=== PATIENT | male | born 1970 | race African-American/Black ===

== ENCOUNTER 2019-12-10 01:52 | Inpatient (IN) ==
[2019-12-10] MEDS ORDERED: ACETAMINOPHEN 500 MG TABLET ONE (02:20)
[2019-12-10] MEDS ORDERED: ACETAMINOPHEN 500 MG TABLET PO STA (02:28)
[2019-12-10] MEDS ORDERED: PIPERACILLIN/TAZOBACTAM 3,375 MG in SODIUM CHLORIDE 0.9% 100 ML IV STA (03:34)
[2019-12-10] MEDS ORDERED: DEXAMETHASONE 4 MG/1 ML VIAL IV STA (03:34)
[2019-12-10] MEDS ORDERED: ONDANSETRON 4 MG/2 ML VIAL IV STA (03:34)
[2019-12-10 04:32] LABS: Basophils % 0.5 % (0.0-0.8); Hematocrit 46.5 VOL% (42.0-52.0); Hemoglobin 15.6 GM/DL (14.0-18.0); Immature Granulocytes % 0.3 %; Immature Granulocytes Absolute 0.02 #; Lymphocytes # 1.7 10*3/uL (1.4-4.0); Lymphocytes % 21.9 % (21.2-54.2); Mean Corpuscular HGB Conc 33.5 GM/DL (32-36); Mean Corpuscular Volume 83.8 FL (87-102); Mean Platelet Volume 9.7 FL (9.6-12.0); Monocytes % 4.3 % (1.7-12.7); Platelet Count 289 T/CUMM (130-400); Red Blood Count 5.55 MC/CUMM (3.8-5.5); Red Cell Distribution Width 13.7 % (9.3-17.3); White Blood Count 7.7 T/CUMM (4-12)
[2019-12-10 04:52] LABS: PT Patient Result 11.1 SECS (9.8-11.9)
[2019-12-10 04:57] LABS: Albumin 4.1 G/DL (3.4-5.0); Bilirubin,Total 0.7 MG/DL (0.2-1.0); Calcium 9.4 MG/DL (8.5-10.1); Ferritin 554.1 ng/ml (26-388); Osmolality,Calculated 266.4 MOS/KG (273-304); Total Protein 8.5 G/DL (6.4-8.3)
[2019-12-10 05:30] LABS: Bilirubin,Urine Negative (Negative); Blood, Urine Small mg/dL (Negative); Glucose,Urine (UA) Negative (Negative); Ketones,Urine Negative (Negative); Mucus,Urine Occasional /LPF (Occasional); Nitrite,Urine Negative (Negative); Protein,Urine 100 MG/DL; RBC,Urine 2 /HPF (0-4); Squamous Epithelial Cell,Urine Occasional /HPF (0-10); Urine Appearance Slightly Hazy (Clear); Urine Color Yellow (Yellow); Urine Specific Gravity 1.034 (1.001-1.035); Urine Urobilinogen < 2.0 EU/DL (0.2-1.0); WBC,Urine 1 /HPF (0-6)
[2019-12-10] MEDS ORDERED: hydrALAZINE 20 MG/1 ML VIAL IV PRN (06:08)
[2019-12-10] MEDS ORDERED: GLUCAGON 1 MG VIAL IM PRN (06:08)
[2019-12-10] MEDS ORDERED: DEXTROSE 50% 25 GM/50 ML VIAL IV PRN (06:08)
[2019-12-10] MEDS ORDERED: ONDANSETRON 4 MG/2 ML VIAL IV PRN (06:08)
[2019-12-10] MEDS ORDERED: ALUMINUM/MAGNES/SIMETH MAX STR 30 ML UDCUP PO PRN (06:08)
[2019-12-10] MEDS ORDERED: NICOTINE 21 MG/24 HR PATCH TRANSDERM PRN (06:08)
[2019-12-10] MEDS ORDERED: diphenhydrAMINE CAP 25 MG CAPSULE PO PRN (06:08)
[2019-12-10] MEDS ORDERED: SODIUM CHLORIDE 0.9% 100 ML IV ONE (06:52)
[2019-12-10] MEDS: cefTRIAXone 1,000 MG in SYRINGE 1 EACH IV SCH (06:54)
[2019-12-10] MEDS: DEXTROSE 5% NACL 0.45% 1,000 ML IV SCH ×2 (08:15→17:57)
[2019-12-10] MEDS: AZITHROMYCIN 250 MG TABLET PO SCH (10:11)
[2019-12-10] MEDS: ASCORBIC ACID 500 MG TABLET PO SCH ×2 (10:12→20:35)
[2019-12-10] MEDS ORDERED: DEXAMETHASONE 4 MG/1 ML VIAL IM SCH (15:30)
[2019-12-10] MEDS: guaiFENesin/DM ER 600-30 MG TABLET PO PRN (16:13)
[2019-12-10] MEDS ORDERED: AZITHROMYCIN INJ 500 MG in SODIUM CHLORIDE 0.9% 250 ML IV SCH (18:30)
[2019-12-10] MEDS: ACETAMINOPHEN 325 MG TABLET PO PRN (22:19)
[2019-12-11] MEDS: DEXTROSE 5% NACL 0.45% 1,000 ML IV SCH ×2 (05:25→16:40)
[2019-12-11] MEDS: ACETAMINOPHEN 325 MG TABLET PO PRN ×3 (05:39→20:34)
[2019-12-11] MEDS: guaiFENesin/DM ER 600-30 MG TABLET PO PRN (05:39)
[2019-12-11 05:47] LABS: Basophils % 0.1 % (0.0-0.8); Hematocrit 43.1 VOL% (42.0-52.0); Hemoglobin 14.3 GM/DL (14.0-18.0); Immature Granulocytes % 0.1 %; Immature Granulocytes Absolute 0.01 #; Lymphocytes # 1.2 10*3/uL (1.4-4.0); Lymphocytes % 17.5 % (21.2-54.2); Mean Corpuscular HGB Conc 33.2 GM/DL (32-36); Mean Corpuscular Volume 85.3 FL (87-102); Mean Platelet Volume 9.7 FL (9.6-12.0); Monocytes % 4.6 % (1.7-12.7); Neutrophils % 77.7 % (38.7-73.9); Platelet Count 288 T/CUMM (130-400); Red Blood Count 5.05 MC/CUMM (3.8-5.5); Red Cell Distribution Width 13.8 % (9.3-17.3)
[2019-12-11] MEDS: cefTRIAXone 1,000 MG in SYRINGE 1 EACH IV SCH (05:47)
[2019-12-11 06:12] LABS: Calcium 8.6 MG/DL (8.5-10.1); Ferritin 438.2 ng/ml (26-388); Osmolality,Calculated 267.4 MOS/KG (273-304)
[2019-12-11] MEDS: ASCORBIC ACID 500 MG TABLET PO SCH ×2 (09:12→20:34)
[2019-12-11] MEDS: AZITHROMYCIN 250 MG TABLET PO SCH (09:12)
[2019-12-11] MEDS: DEXAMETHASONE 4 MG/1 ML VIAL IV SCH (09:12)
[2019-12-11] MEDS ORDERED: DOCUSATE SODIUM 100 MG CAPSULE PO PRN (09:30)
[2019-12-11] MEDS ORDERED: MAGNESIUM HYDROXIDE SUSP 30 ML UDCUP PO ONE (10:24)
[2019-12-11] MEDS: PHENOL 1.4% THROAT SPRAY 177 ML BOTTLE PO PRN (11:08)
[2019-12-11] MEDS: POLYETHYLENE GLYCOL POWDER 17 GM PACK PO SCH (11:09)
[2019-12-11] MEDS: DOCUSATE SODIUM 100 MG CAPSULE PO SCH (11:09)
[2019-12-11] MEDS ORDERED: BISACODYL 10 MG SUPP RECTAL ONE (14:35)
[2019-12-12] MEDS: DEXTROSE 5% NACL 0.45% 1,000 ML IV SCH ×3 (04:14→17:32)
[2019-12-12 04:56] LABS: Basophils % 0.2 % (0.0-0.8); Hematocrit 44.6 VOL% (42.0-52.0); Hemoglobin 14.6 GM/DL (14.0-18.0); Immature Granulocytes % 0.2 %; Immature Granulocytes Absolute 0.01 #; Lymphocytes # 1.2 10*3/uL (1.4-4.0); Lymphocytes % 19.9 % (21.2-54.2); Mean Corpuscular HGB Conc 32.7 GM/DL (32-36); Neutrophils % 75.7 % (38.7-73.9); Platelet Count 262 T/CUMM (130-400); Red Blood Count 5.25 MC/CUMM (3.8-5.5); Red Cell Distribution Width 13.8 % (9.3-17.3); White Blood Count 5.8 T/CUMM (4-12)
[2019-12-12 05:29] LABS: Calcium 8.6 MG/DL (8.5-10.1); Ferritin 509.9 ng/ml (26-388); Osmolality,Calculated 268.2 MOS/KG (273-304)
[2019-12-12] MEDS: cefTRIAXone 1,000 MG in SYRINGE 1 EACH IV SCH (05:52)
[2019-12-12] MEDS: PHENOL 1.4% THROAT SPRAY 177 ML BOTTLE PO PRN (06:02)
[2019-12-12] MEDS: guaiFENesin 200 MG/10 ML UDCUP PO PRN (06:28)
[2019-12-12] MEDS: DOCUSATE SODIUM 100 MG CAPSULE PO SCH (08:41)
[2019-12-12] MEDS: POLYETHYLENE GLYCOL POWDER 17 GM PACK PO SCH (08:41)
[2019-12-12] MEDS: ENOXAPARIN 40 MG/0.4 ML SYRINGE SUBCUT SCH (08:41)
[2019-12-12] MEDS: ACETAMINOPHEN 325 MG TABLET PO PRN (08:41)
[2019-12-12] MEDS: AZITHROMYCIN 250 MG TABLET PO SCH (08:42)
[2019-12-12] MEDS: ASCORBIC ACID 500 MG TABLET PO SCH ×2 (08:42→21:10)
[2019-12-12] MEDS: DEXAMETHASONE 4 MG/1 ML VIAL IV SCH (08:42)
[2019-12-12] MEDS ORDERED: SODIUM CHLORIDE 0.9% 1,000 ML IV PRN (14:18)
[2019-12-13] MEDS: DEXTROSE 5% NACL 0.45% 1,000 ML IV SCH ×3 (01:25→09:38)
[2019-12-13] MEDS: cefTRIAXone 1,000 MG in SYRINGE 1 EACH IV SCH (05:40)
[2019-12-13 06:04] LABS: Basophils % 0.2 % (0.0-0.8); Hematocrit 44.9 VOL% (42.0-52.0); Immature Granulocytes % 0.4 %; Immature Granulocytes Absolute 0.04 #; Lymphocytes # 1.5 10*3/uL (1.4-4.0); Lymphocytes % 14.6 % (21.2-54.2); Mean Corpuscular HGB Conc 33.4 GM/DL (32-36); Mean Corpuscular Volume 84.6 FL (87-102); Mean Platelet Volume 9.7 FL (9.6-12.0); Monocytes % 2.2 % (1.7-12.7); Neutrophils % 82.6 % (38.7-73.9); Platelet Count 310 T/CUMM (130-400); Red Blood Count 5.31 MC/CUMM (3.8-5.5); Red Cell Distribution Width 13.6 % (9.3-17.3)
[2019-12-13 07:05] LABS: Calcium 9.5 MG/DL (8.5-10.1); Osmolality,Calculated 260.8 MOS/KG (273-304)
[2019-12-13] MEDS: ENOXAPARIN 40 MG/0.4 ML SYRINGE SUBCUT SCH (08:06)
[2019-12-13] MEDS: POLYETHYLENE GLYCOL POWDER 17 GM PACK PO SCH (08:06)
[2019-12-13] MEDS: DOCUSATE SODIUM 100 MG CAPSULE PO SCH (08:06)
[2019-12-13] MEDS: DEXAMETHASONE 4 MG/1 ML VIAL IV SCH (08:06)
[2019-12-13] MEDS: AZITHROMYCIN 250 MG TABLET PO SCH (08:07)
[2019-12-13] MEDS: ASCORBIC ACID 500 MG TABLET PO SCH ×2 (08:07→21:00)
[2019-12-13] MEDS: guaiFENesin/DM ER 600-30 MG TABLET PO PRN (21:00)
[2019-12-14 05:31] LABS: Ferritin 857.3 ng/ml (26-388)
[2019-12-14] MEDS: cefTRIAXone 1,000 MG in SYRINGE 1 EACH IV SCH (06:00)
[2019-12-14] MEDS: ENOXAPARIN 40 MG/0.4 ML SYRINGE SUBCUT SCH (07:58)
[2019-12-14] MEDS: DEXAMETHASONE 4 MG/1 ML VIAL IV SCH (07:59)
[2019-12-14] MEDS: DOCUSATE SODIUM 100 MG CAPSULE PO SCH (07:59)
[2019-12-14] MEDS: POLYETHYLENE GLYCOL POWDER 17 GM PACK PO SCH (08:00)
[2019-12-14] MEDS: AZITHROMYCIN 250 MG TABLET PO SCH (08:00)
[2019-12-14] MEDS: ASCORBIC ACID 500 MG TABLET PO SCH ×2 (08:05→21:05)
[2019-12-14] MEDS: guaiFENesin/DM ER 600-30 MG TABLET PO PRN (21:05)
[2019-12-14] MEDS: traZODone 50 MG TABLET PO PRN (21:05)
[2019-12-15] MEDS: cefTRIAXone 1,000 MG in SYRINGE 1 EACH IV SCH (05:30)
[2019-12-15 05:42] LABS: Basophils % 0.3 % (0.0-0.8); Hematocrit 42.8 VOL% (42.0-52.0); Hemoglobin 14.1 GM/DL (14.0-18.0); Immature Granulocytes % 1.7 %; Immature Granulocytes Absolute 0.11 #; Lymphocytes % 29.4 % (21.2-54.2); Mean Corpuscular HGB Conc 32.9 GM/DL (32-36); Mean Corpuscular Volume 83.1 FL (87-102); Mean Platelet Volume 9.1 FL (9.6-12.0); Monocytes % 6.2 % (1.7-12.7); Neutrophils % 62.4 % (38.7-73.9); Platelet Count 408 T/CUMM (130-400); Red Blood Count 5.15 MC/CUMM (3.8-5.5); Red Cell Distribution Width 13.3 % (9.3-17.3); White Blood Count 6.6 T/CUMM (4-12)
[2019-12-15 06:07] LABS: Atypical Lymphocytes Few; Lymphocytes 35 % (20-55); Metamyelocytes 1 %; Platelet Estimate Normal; Segmented Neutrophils 57 % (50-85); Total Cells Counted 100
[2019-12-15 06:08] LABS: Anisocytosis Slight
[2019-12-15 06:10] LABS: Calcium 9.7 MG/DL (8.5-10.1); Osmolality,Calculated 266.4 MOS/KG (273-304)
[2019-12-15] MEDS: ENOXAPARIN 40 MG/0.4 ML SYRINGE SUBCUT SCH (07:59)
[2019-12-15] MEDS: DOCUSATE SODIUM 100 MG CAPSULE PO SCH (08:00)
[2019-12-15] MEDS: POLYETHYLENE GLYCOL POWDER 17 GM PACK PO SCH (08:00)
[2019-12-15] MEDS: ASCORBIC ACID 500 MG TABLET PO SCH ×2 (08:00→20:28)
[2019-12-15] MEDS: DEXAMETHASONE 4 MG/1 ML VIAL IV SCH (08:01)
[2019-12-15 12:43] LABS: ABG Base Excess 4.3 MMOL/L (-2.5-2.5); ABG HCO3 28.2 MMOL/L (20-26); ABG Oxygen Saturation 94.4 % (95-100); ABG PH 7.418 (7.35-7.45); ABG PO2 77.3 MM HG (80-95); ABG TCO2 25.5 MMOL/L (23-27); Allen Test Positive; Pt O2 Delivery Device BIPAP
[2019-12-15] MEDS: guaiFENesin 200 MG/10 ML UDCUP PO PRN (20:28)
[2019-12-15] MEDS: ACETAMINOPHEN 325 MG TABLET PO PRN (20:29)
[2019-12-15] MEDS: guaiFENesin/DM ER 600-30 MG TABLET PO PRN (20:29)
[2019-12-15] MEDS: traZODone 50 MG TABLET PO PRN (20:29)
[2019-12-16] MEDS: cefTRIAXone 1,000 MG in SYRINGE 1 EACH IV SCH (05:45)
[2019-12-16] MEDS: ENOXAPARIN 40 MG/0.4 ML SYRINGE SUBCUT SCH (08:31)
[2019-12-16] MEDS: DOCUSATE SODIUM 100 MG CAPSULE PO SCH (08:32)
[2019-12-16] MEDS: guaiFENesin/DM ER 600-30 MG TABLET PO PRN (08:32)
[2019-12-16] MEDS: ASCORBIC ACID 500 MG TABLET PO SCH ×2 (08:33→20:10)
[2019-12-16] MEDS: DEXAMETHASONE 4 MG/1 ML VIAL IV SCH (08:35)
[2019-12-16] MEDS: POLYETHYLENE GLYCOL POWDER 17 GM PACK PO SCH (08:36)
[2019-12-16] MEDS ORDERED: REMDESIVIR 200 MG in SODIUM CHLORIDE 0.9% 210 ML IV ONE (09:00)
[2019-12-16] MEDS: ALBUTEROL INHALER 18 GM INH SCH ×2 (20:10→20:20)
[2019-12-17] MEDS: ALBUTEROL INHALER 18 GM INH SCH ×4 (01:40→19:50)
[2019-12-17 06:21] LABS: Basophils # 0.1 10*3/uL (0.0-0.2); Basophils % 0.7 % (0.0-0.8); Eosinophils % 0.2 % (0.00-10.9); Hematocrit 42.1 VOL% (42.0-52.0); Hemoglobin 13.9 GM/DL (14.0-18.0); Immature Granulocytes % 4.8 %; Immature Granulocytes Absolute 0.44 #; Lymphocytes # 2.4 10*3/uL (1.4-4.0); Lymphocytes % 26.1 % (21.2-54.2); Mean Corpuscular Volume 84.5 FL (87-102); Neutrophils % 62.2 % (38.7-73.9); Platelet Count 453 T/CUMM (130-400); Red Blood Count 4.98 MC/CUMM (3.8-5.5); Red Cell Distribution Width 13.3 % (9.3-17.3); White Blood Count 9.2 T/CUMM (4-12)
[2019-12-17] MEDS: cefTRIAXone 1,000 MG in SYRINGE 1 EACH IV SCH (06:35)
[2019-12-17 06:42] LABS: Calcium 9.2 MG/DL (8.5-10.1); Osmolality,Calculated 272.8 MOS/KG (273-304)
[2019-12-17] MEDS: DOCUSATE SODIUM 100 MG CAPSULE PO SCH (08:54)
[2019-12-17] MEDS: ASCORBIC ACID 500 MG TABLET PO SCH ×2 (08:54→21:11)
[2019-12-17] MEDS: DEXAMETHASONE 4 MG/1 ML VIAL IV SCH (08:55)
[2019-12-17] MEDS: POLYETHYLENE GLYCOL POWDER 17 GM PACK PO SCH (08:55)
[2019-12-17] MEDS: ENOXAPARIN 40 MG/0.4 ML SYRINGE SUBCUT SCH (08:55)
[2019-12-17] MEDS: REMDESIVIR 100 MG in SODIUM CHLORIDE 0.9% 230 ML IV SCH (09:01)
[2019-12-18] MEDS: ALBUTEROL INHALER 18 GM INH SCH ×3 (01:10→14:28)
[2019-12-18 05:46] LABS: Basophils # 0.1 10*3/uL (0.0-0.2); Basophils % 0.5 % (0.0-0.8); Eosinophils % 0.2 % (0.00-10.9); Hemoglobin 14.5 GM/DL (14.0-18.0); Immature Granulocytes Absolute 0.76 #; Lymphocytes # 2.4 10*3/uL (1.4-4.0); Lymphocytes % 21.9 % (21.2-54.2); Mean Corpuscular Volume 85.1 FL (87-102); Monocytes % 6.3 % (1.7-12.7); Neutrophils % 64.1 % (38.7-73.9); Platelet Count 462 T/CUMM (130-400); Red Blood Count 5.17 MC/CUMM (3.8-5.5); Red Cell Distribution Width 13.4 % (9.3-17.3); White Blood Count 10.9 T/CUMM (4-12)
[2019-12-18 06:04] LABS: Calcium 9.6 MG/DL (8.5-10.1); Osmolality,Calculated 267.2 MOS/KG (273-304)
[2019-12-18 06:12] LABS: Band Neutrophils 1 % (0-10); Hypochromasia 1+; Lymphocytes 21 % (20-55); Microcytosis Slight; Platelet Estimate Increased; Segmented Neutrophils 72 % (50-85); Total Cells Counted 100
[2019-12-18] MEDS: guaiFENesin/DM ER 600-30 MG TABLET PO PRN (08:11)
[2019-12-18] MEDS: ASCORBIC ACID 500 MG TABLET PO SCH ×2 (08:12→22:11)
[2019-12-18] MEDS: DOCUSATE SODIUM 100 MG CAPSULE PO SCH (08:12)
[2019-12-18] MEDS: DEXAMETHASONE 4 MG/1 ML VIAL IV SCH (08:12)
[2019-12-18] MEDS: ENOXAPARIN 40 MG/0.4 ML SYRINGE SUBCUT SCH (08:13)
[2019-12-18] MEDS: POLYETHYLENE GLYCOL POWDER 17 GM PACK PO SCH (08:13)
[2019-12-18] MEDS: REMDESIVIR 100 MG in SODIUM CHLORIDE 0.9% 230 ML IV SCH (09:06)
[2019-12-19 04:01] LABS: Basophils # 0.1 10*3/uL (0.0-0.2); Basophils % 0.4 % (0.0-0.8); Eosinophils % 0.2 % (0.00-10.9); Hematocrit 40.4 VOL% (42.0-52.0); Hemoglobin 13.5 GM/DL (14.0-18.0); Immature Granulocytes % 6.4 %; Immature Granulocytes Absolute 0.77 #; Lymphocytes # 2.1 10*3/uL (1.4-4.0); Lymphocytes % 17.2 % (21.2-54.2); Mean Corpuscular HGB Conc 33.4 GM/DL (32-36); Mean Corpuscular Volume 83.8 FL (87-102); Mean Platelet Volume 8.7 FL (9.6-12.0); Monocytes % 6.6 % (1.7-12.7); Neutrophils % 69.2 % (38.7-73.9); Platelet Count 505 T/CUMM (130-400); Red Blood Count 4.82 MC/CUMM (3.8-5.5); Red Cell Distribution Width 13.3 % (9.3-17.3)
[2019-12-19 04:34] LABS: Calcium 9.1 MG/DL (8.5-10.1)
[2019-12-19 04:54] LABS: Band Neutrophils 1 % (0-10); Hypochromasia 1+; Lymphocytes 16 % (20-55); Segmented Neutrophils 73 % (50-85); Total Cells Counted 100
[2019-12-19 04:55] LABS: Microcytosis Slight; Platelet Estimate Increased
[2019-12-19] MEDS: ENOXAPARIN 40 MG/0.4 ML SYRINGE SUBCUT SCH (09:00)
[2019-12-19] MEDS: POLYETHYLENE GLYCOL POWDER 17 GM PACK PO SCH (09:00)
[2019-12-19] MEDS: DEXAMETHASONE 4 MG/1 ML VIAL IV SCH (09:00)
[2019-12-19] MEDS: DOCUSATE SODIUM 100 MG CAPSULE PO SCH (09:00)
[2019-12-19] MEDS: REMDESIVIR 100 MG in SODIUM CHLORIDE 0.9% 230 ML IV SCH (09:00)
[2019-12-19] MEDS: ASCORBIC ACID 500 MG TABLET PO SCH ×2 (09:00→20:17)
[2019-12-19] MEDS: ALBUTEROL INHALER 18 GM INH SCH ×4 (09:00→20:17)
[2019-12-20] MEDS: ALBUTEROL INHALER 18 GM INH SCH ×2 (00:31→06:13)
[2019-12-20 04:07] LABS: Basophils # 0.1 10*3/uL (0.0-0.2); Basophils % 0.4 % (0.0-0.8); Eosinophils % 0.2 % (0.00-10.9); Hemoglobin 14.2 GM/DL (14.0-18.0); Immature Granulocytes % 7.4 %; Immature Granulocytes Absolute 0.92 #; Lymphocytes # 1.9 10*3/uL (1.4-4.0); Lymphocytes % 15.7 % (21.2-54.2); Mean Corpuscular HGB Conc 33.8 GM/DL (32-36); Mean Corpuscular Volume 83.8 FL (87-102); Mean Platelet Volume 8.6 FL (9.6-12.0); Monocytes % 5.3 % (1.7-12.7); Platelet Count 501 T/CUMM (130-400); Red Blood Count 5.01 MC/CUMM (3.8-5.5); Red Cell Distribution Width 13.4 % (9.3-17.3); White Blood Count 12.4 T/CUMM (4-12)
[2019-12-20 04:23] LABS: Calcium 9.3 MG/DL (8.5-10.1); Osmolality,Calculated 271.1 MOS/KG (273-304)
[2019-12-20 07:18] LABS: Anisocytosis 1+; Lymphocytes 17 % (20-55); Platelet Estimate Increased; Segmented Neutrophils 78 % (50-85); Smudge Cells Few; Total Cells Counted 100
[2019-12-20] MEDS: DEXAMETHASONE 4 MG/1 ML VIAL IV SCH (09:37)
[2019-12-20] MEDS: ASCORBIC ACID 500 MG TABLET PO SCH (09:40)
[2019-12-20] MEDS: REMDESIVIR 100 MG in SODIUM CHLORIDE 0.9% 230 ML IV SCH (09:40)
[2019-12-20] MEDS: POLYETHYLENE GLYCOL POWDER 17 GM PACK PO SCH (09:40)
[2019-12-20] MEDS: ENOXAPARIN 40 MG/0.4 ML SYRINGE SUBCUT SCH (09:40)
[2019-12-20] MEDS: DOCUSATE SODIUM 100 MG CAPSULE PO SCH (09:40)
[2019-12-20 11:43] VITALS: BP 110/65
== END 2019-12-20 12:25 | disposition home or self-care (01) | DRG 177 ==
LOC: N.EDINP 01:52 → N.ED 01:52 → N.EDINP 07:08 → N.2E 07:16 → SUATTDRO 12-11 15:21
PROVIDERS: ADMIT Internal Medicine; ATTEND Internal Medicine